=== PATIENT | female | born 1970 | race American Indian/Alaskan Native ===

== ENCOUNTER 2021-07-25 07:49 | Outpatient (CLI) | payer OTHER ==
--- NOTE | 2021-07-26 10:31 | Mammography Report ---
DIGITAL SCREENING MAMMOGRAM WITH CAD, 07/25/2021 CLINICAL INFORMATION / INDICATION: Routine screening mammography. TECHNIQUE: Digital bilateral 2D mammography was obtained in the craniocaudal and mediolateral obliqu e projections. This examination was interpreted with the benefit of Computer-Aided Detection analysis . COMPARISON: None. This is the patient's first mammogram. FINDINGS: Breast Density: There are scattered areas of fibroglandular density. No dominant mass, suspicious calcifications, or architectural distortion in either breast. Postsurgical changes from bilateral breast reduction are noted. IMPRESSION: No mammographic evidence of malignancy. Follow up recommendation: Routine yearly BI-RADS Category 2: Benign. A "normal" or negative report should not discourage follow up or biopsy of a clinically significant f inding. A written summary of these findings will be mailed to the patient. The patient will be entered into a mammography reporting system which will generate a reminder letter for the patient's next appointmen t at the appropriate interval. The [employer] recommends yearly mammograms starting at age 40 and continuing as l lisa as a woman is in good health. Breast MRI is recommended for women with an approximate 20-25% or greater lifetime risk of breast cancer, including women with a strong family history of breast or ova lin cancer or who have been treated for Hodgkin's disease. Signer Name: Adriana Morris MD Signed: 07/26/2021 10:27 AM Workstation Name: [id number]
== END 2021-07-25 07:50 | disposition home or self-care (01) ==
LOC: MAMMO 07:49
DX: Z12.31 Encounter for screening mammogram for malignant neoplasm of breast (principal)
CPT/HCPCS: 77067

== ENCOUNTER 2021-10-26 05:57 | Inpatient (IN) | payer SELFPAY ==
--- NOTE | 2021-10-26 09:20 | Emergency Department Report ---
ED Chest Pain HPI - General Chief Complaint: Dyspnea/Respdistress Stated Complaint: SOB, SWOLLEN ANKLE PUI?: No Time Seen by Provider: 10/26/21 09:08 Source: patient Mode of arrival: Ambulatory Limitations: No Limitations - History of Present Illness Initial Comments: 51-year-old female with a past medical history of hypertension and depression presents to the ER today with complaints of shortness of breath, chest pain and bilateral lower extremity swelling. Patient states that 6 to 7 weeks ago she started noticing that when on exertion she would have substernal chest pain which she described as a tightness sometimes burning and severe shortness of breath. She states that the symptoms did improve with rest. She states that when she became short of breath and started with chest pain she would sometimes get dizzy and diaphoretic but she has not had any nausea or vomiting. She reports that 3 to 4 weeks ago she started having swelling to her bilateral lower extremity including ankle and feet. She states that she has not noticed much improvement of the swelling with elevation of her legs. She denies any calf pain or leg pain with the swelling. She denies any known history of heart disease or kidney disease. She denies any history of DVT or PE. She denies any risk factors for PE or DVT. She states that her dad did suffer from heart disease including having an PA and CHF. 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 MD Complaint: chest pain, other (SOB; LE swelling) -: Gradual, week(s) (6-7 weeks ) - Related Data Previous Rx's Medication Instructions Recorded Last Taken Type Butalb/Acetamin/Caff 50-325-40 1 each PO Q4H PRN #12 tablet 05/24/21 Unknown Rx [Fioricet 50-325-40] Allergies Allergy/AdvReac Type Severity Reaction Status Date / Time No Known Allergies Allergy Unverified 05/24/21 07:09 Heart Score - HEART Score History: Moderately suspicious EKG: Non-specific Age: 45-65 Risk factors: 1-2 risk factors (obesity, HTN, family hx (father)) Troponin: < normal limit HEART Score: 4 - EKG Read Time Time EKG Completed: 10:28 EKG Read Time: 10:24 - Critical Actions Critical Actions: 4-6 pts:12-16.6% risk of adverse cardiac event. Should be admitted ED Review of Systems ROS: Stated complaint: SOB, SWOLLEN ANKLE Other details as noted in HPI Comment: All other systems reviewed and negative Constitutional: denies: chills, fever Eyes: denies: eye pain, eye discharge, vision change ENT: denies: ear pain, throat pain Respiratory: shortness of breath, wheezing. denies: SOB with exertion, SOB at rest Cardiovascular: chest pain, dyspnea on exertion, edema Gastrointestinal: denies: abdominal pain, nausea, diarrhea Genitourinary: denies: urgency, dysuria, discharge Musculoskeletal: joint swelling. denies: back pain, arthralgia Skin: denies: rash, lesions Neurological: denies: headache, weakness, numbness, paresthesias, confusion, abnormal gait, other Psychiatric: denies: anxiety, depression, auditory hallucinations, visual hallucinations, homicidal thoughts, suicidal thoughts Hematological/Lymphatic: denies: easy bleeding, easy bruising ED Past Medical Hx - Past Medical History Hx Hypertension: Yes Hx Psychiatric Treatment: Yes (depression) - Medications Home Medications: Home Medications Medication Instructions Recorded Confirmed Last Taken Type Butalb/Acetamin/Caff 50-325-40 1 each PO Q4H PRN #12 tablet 05/24/21 Unknown Rx [Fioricet 50-325-40] ED Physical Exam - General Limitations: No Limitations General appearance: alert, in no apparent distress, obese - Eye Eye exam: Present: normal appearance, PERRL, EOMI Pupils: Present: normal accommodation - Neck Neck exam: Present: normal inspection, full ROM. Absent: meningismus - Respiratory Respiratory exam: Present: normal lung sounds bilaterally. Absent: respiratory distress, wheezes, rales, rhonchi, stridor - Cardiovascular Cardiovascular Exam: Present: regular rate, normal rhythm, normal heart sounds. Absent: systolic murmur, diastolic murmur - GI/Abdominal GI/Abdominal exam: Present: soft. Absent: tenderness, guarding, rebound - Extremities Exam Extremities exam: Present: full ROM, pedal edema (Moderate nonpitting edema noted to lower legs, ankles and feet). Absent: tenderness, calf tenderness - Neurological Exam Neurological exam: Present: alert, oriented X3, CN II-XII intact, normal gait - Psychiatric Psychiatric exam: Present: normal affect, normal mood ED Course Vital Signs 10/26/21 10/26/21 06:09 13:15 Temperature 98.0 F Pulse Rate 66 64 Respiratory 20 16 Rate Blood Pressure 160/100 Blood Pressure 146/74 [Right] O2 Sat by Pulse 98 100 Oximetry ED Medical Decision Making - Lab Data Result diagrams: 10/26/21 09:26 10/26/21 09:26 - EKG Data EKG shows normal: sinus rhythm Rate: normal (59) No standard instances Welch/QRS: right axis deviation - EKG Data Interpretation: nonspecific ST-T wave lucy - Radiology Data Radiology results: report reviewed Patient: MAXIMILIAN STEINBERG MR#: [id number] : 1970 Acct:[id number] Age/Sex: 51 / F ADM Date: 10/26/21 Loc: ED Attending Dr: Ordering Physician: LY OWUSU Date of Service: 10/26/21 Procedure(s): XR chest routine 2V Accession Number(s): [id number] cc: LY OWUSU Fluoro Time In Minutes: CHEST 2 VIEWS INDICATION: Dyspnea. COMPARISON: none FINDINGS: Support devices: None. Heart: Within normal limits. Lungs/pleura: No acute air space or interstitial disease. No pneumothorax. Additional findings: None. IMPRESSION: No acute findings. Signer Name: Aki Epstein Jr, MD Signed: 10/26/2021 9:51 AM Workstation Name: [id number] Transcribed By: TTR Dictated By: AKI EPSTEIN JR, MD Electronically Authenticated By: AKI EPSTEIN JR, MD Signed Date/Time: 10/26/21950 DD/ 0 TD/TT: Patient: MAXIMILIAN STEINBERG MR#: [id number] : 1970 Acct:[id number] Age/Sex: 51 / F ADM Date: 10/26/21 Loc: ED Attending Dr: Ordering Physician: LY OWUSU Date of Service: 10/26/21 Procedure(s): VL venous duplex LE BILAT Accession Number(s): [id number] cc: LY OWUSU Bilateral lower extremity Doppler venous ultrasound INDICATION: Shortness of breath FINDINGS: Bilateral common femoral veins, superficial femoral veins and popliteal veins have normal compressibility and phasic flow. IMPRESSION: No evidence for DVT. Signer Name: Car Quispe MD Signed: 10/26/2021 10:32 AM Workstation Name: [id number] Transcribed By: LORAINE Dictated By: NAKITA QUISPE MD Electronically Authenticated By: NAKITA QUISPE MD Signed Date/Time: 10/26/211031 DD/ 31 TD/TT: Patient: MAXIMILIAN STEINBERG MR#: [id number] : 1970 Acct:[id number] Age/Sex: 51 / F ADM Date: 10/26/21 Loc: ED Attending Dr: Ordering Physician: LY OWUSU Date of Service: 10/26/21 Procedure(s): CT angio chest Accession Number(s): [id number] cc: LY OWUSU CTA CHEST WITH IV CONTRAST INDICATION: SOB/elevated d-dimer. Chest pain TECHNIQUE: Axial CT images were obtained through the chest after injection of 100 mL Omnipaque 350 IV contrast. 3 plane MIP reconstructions were produced. All CT scans at this location are performed u sing CT dose reduction for [facility] by means of automated exposure control. COMPARISON: None available. FINDINGS: PULMONARY ARTERIES: No pulmonary emboli. AORTA AND ARTERIES: No acute abnormality. MEDIASTINUM: Mild bilateral adenopathy involving both karely.. LUNGS: No suspicious consolidation, nodule or mass. No pneumothorax or pleural effusion. ADDITIONAL FINDINGS: None. UPPER ABDOMEN: No acute findings. BONES: No significant osseous abnormality. IMPRESSION: 1. No CT evidence for pulmonary embolism. 2. Mild bilateral hilar adenopathy. Signer Name: Manjeet Montez MD Signed: 10/26/2021 11:14 AM Workstation Name: [id number] Transcribed By: BC Dictated By: Manjeet Montez MD Electronically Authenticated By: Manjeet Montez MD Signed Date/Time: 10/26/214 DD/ 11 TD/TT: - Medical Decision Making Work up reviewed --chest x-ray shows no acute abnormalities. Troponin x2 normal. CBC and CMP unremarkable. BNP is normal. EKG shows no nonspecific T wave changes but STEMI or significant dysrhythmias. Her venous Dopplers were negative for DVT. CTA chest was normal without evidence of PE. Case was disc ussed with Dr. Aditya Herzog. Given patient history, and her risk factors, heart score 4 concerns for unstable angina patient will be admitted to the hospital for further cardiac work-up. Dr. Aditya Herzog discussed case with Dr. Rivera, hospitalist for admission. Patient currently sitting comfortably on the recliner. She is not currently in any acute pain or respiratory distress. Repeat vital signs are stable. Discussed all results with patient. Discussed the concerns and reason for admission with patient. Patient expressed understanding agree with plan. Patient was stable at time of discharge per Critical care attestation.: If time is entered above; I have spent that time in minutes in the direct care of this critically ill patient, excluding procedure time. ED Disposition Clinical Impression: Unstable angina, Dyspnea, Peripheral edema Disposition: ADMITTED INPATIENT Is pt being admited?: Yes Condition: Stable Referrals: PRIMARY CARE, [Primary Care Provider] - 3-5 Days
[2021-10-26 09:43] LABS: Basophils % (Auto) 0.8 % (0.0-1.8); Eosinophils # (Auto) 0.1 K/mm3 (0.0-0.4); Eosinophils % (Auto) 1.7 % (0.0-4.3); Hematocrit 36.5 % (30.3-42.9); Hemoglobin 11.4 gm/dl (10.1-14.3); Lymphocytes # (Auto) 1.6 K/mm3 (1.2-5.4); Lymphocytes % (Auto) 29.9 % (13.4-35.0); Mean Corpuscular HGB Conc 31 % (30-34); Mean Corpuscular Volume 85 fl (79-97); Monocytes # (Auto) 0.5 K/mm3 (0.0-0.8); Monocytes % (Auto) 8.3 % (0.0-7.3); Platelet Count 284 K/mm3 (140-440); Red Cell Distribution Width 17.2 % (13.2-15.2)
--- NOTE | 2021-10-26 09:56 | XRay Report ---
CHEST 2 VIEWS INDICATION: Dyspnea. COMPARISON: none FINDINGS: Support devices: None. Heart: Within normal limits. Lungs/pleura: No acute air space or interstitial disease. No pneumothorax. Additional findings: None. IMPRESSION: No acute findings. Signer Name: Aki Epstein Jr, MD Signed: 10/26/2021 9:51 AM Workstation Name: [id number]
[2021-10-26 10:11] LABS: Alanine Aminotransferase 14 units/L (7-56); Albumin 4.4 g/dL (3.9-5); Blood Urea Nitrogen 14 mg/dL (7-17); Calcium 9.5 mg/dL (8.4-10.2); Hemolysis Index 5
[2021-10-26 10:18] LABS: BUN/Creatinine Ratio 20
--- NOTE | 2021-10-26 10:37 | Vascular Lab Report ---
Bilateral lower extremity Doppler venous ultrasound INDICATION: Shortness of breath FINDINGS: Bilateral common femoral veins, superficial femoral veins and popliteal veins have normal c ompressibility and phasic flow. IMPRESSION: No evidence for DVT. Signer Name: Car Quispe MD Signed: 10/26/2021 10:32 AM Workstation Name: [id number]
--- NOTE | 2021-10-26 11:19 | Cat Scan Report ---
CTA CHEST WITH IV CONTRAST INDICATION: SOB/elevated d-dimer. Chest pain TECHNIQUE: Axial CT images were obtained through the chest after injection of 100 mL Omnipaque 350 IV contrast. 3 plane MIP reconstructions were produced. All CT scans at this location are performed using CT dose reduction for [facility] by means of automated exposure control. COMPARISON: None available. FINDINGS: PULMONARY ARTERIES: No pulmonary emboli. AORTA AND ARTERIES: No acute abnormality. MEDIASTINUM: Mild bilateral adenopathy involving both karely.. LUNGS: No suspicious consolidation, nodule or mass. No pneumothorax or pleural effusion. ADDITIONAL FINDINGS: None. UPPER ABDOMEN: No acute findings. BONES: No significant osseous abnormality. IMPRESSION: 1. No CT evidence for pulmonary embolism. 2. Mild bilateral hilar adenopathy. Signer Name: Manjeet Montez MD Signed: 10/26/2021 11:14 AM Workstation Name: [id number]
[2021-10-26] MEDS ORDERED: ACETAMINOPHEN 325 MG TAB PO PRN (16:11)
[2021-10-26] MEDS ORDERED: ONDANSETRON 4 MG/2 ML INJ IV PRN (16:11)
[2021-10-26] MEDS ORDERED: oxyCODONE /ACETAMINOPHEN 5-325MG TAB PO PRN (16:11)
[2021-10-26] MEDS ORDERED: HYDROmorphone 1 MG/1 ML INJ IV PRN (16:11)
--- NOTE | 2021-10-26 16:30 | History and Physical Report ---
History of Present Illness Date of examination: 10/26/21 Date of admission: October 26 2021 Chief complaint: Shortness of breath on minimal exertion for 1 week History of present illness: 51-year-old female with past medical history of hypertension and depression com es in for increasing shortness of breath, chest pain and bilateral lower extremity swelling for 1 week. Patient noticed exertion on dyspnea about 6 weeks ago. Patient stated she is compliant with her blood pressure medications. Did not seek any medical attention because of her problems with insurance. Patient is orthopneic. No paroxysmal nocturnal dyspnea. Chest pain is intermittent. About 5 on a scale of 1-10. Precipitated by exertion. No diaphoresis. No radiation of the chest pain. No nausea or vomiting. Patient also noticed bilateral lower extremity swelling including ankle and feet. Heart Score - HEART Score History: Moderately suspicious EKG: Non-specific Age: 45-65 Risk factors: 1-2 risk factors (obesity, HTN, family hx (father)) Troponin: < normal limit HEART Score: 4 - EKG Read Time Time EKG Completed: 10:28 EKG Read Time: 10:24 - Critical Actions Critical Actions: 4-6 pts:12-16.6% risk of adverse cardiac event. Should be admitted - Past Medical History --Hypertension: Yes --Psychiatric Treatment: Yes (depression) -Past surgical history none -Family history --CHF -Social history -- no smoking or alcohol - Medications Home Medications: Home Medications Medication Instructions Recorded Confirmed Last Taken Type Butalb/Acetamin/Caff 50-325-40 1 each PO Q4H PRN #12 tablet 05/24/21 Unknown Rx [Fioricet 50-325-40] Review of Systems ROS: Stated complaint: SOB, SWOLLEN ANKLE Other details as noted in HPI Comment: All other systems reviewed and negative Constitutional: denies: chills, fever Eyes: denies: eye pain, eye discharge, vision change ENT: denies: ear pain, throat pain Respiratory: shortness of breath, wheezing. denies: SOB with exertion, SOB at rest Cardiovascular: chest pain, dyspnea on exertion, edema Gastrointestinal: denies: abdominal pain, nausea, diarrhea Genitourinary: denies: urgency, dysuria, discharge Musculoskeletal: joint swelling. denies: back pain, arthralgia Skin: denies: rash, lesions Neurological: denies: headache, weakness, numbness, paresthesias, confusion, abnormal gait, other Psychiatric: denies: anxiety, depression, auditory hallucinations, visual hallucinations, homicidal thoughts, suicidal thoughts Hematological/Lymphatic: denies: easy bleeding, easy bruising Medications and Allergies Allergies Allergy/AdvReac Type Severity Reaction Status Date / Time No Known Allergies Allergy Verified 10/26/21 17:53 Home Medications Medication Instructions Recorded Confirmed Last Taken Type Butalb/Acetamin/Caff 50-325-40 1 each PO Q4H PRN #12 tablet 05/24/21 Unknown Rx [Fioricet 50-325-40] Exam - Constitutional Vitals: Temp Pulse Resp BP Pulse Ox 98.0 F 64 16 146/74 100 10/26/21 06:09 10/26/21 13:15 10/26/21 13:15 10/26/21 13:15 10/26/21 13:15 General appearance: Present: mild distress, well-nourished - EENT Eyes: Present: PERRL ENT: hearing intact, clear oral mucosa - Neck Neck: Present: supple, normal ROM - Respiratory Respiratory effort: normal Respiratory: bilateral: CTA - Cardiovascular Heart rate: 106 Rhythm: regular Heart Sounds: Present: S1 & S2. Absent: rub, click - Extremities Extremities: pulses symmetrical, No edema (3+ pedal edema) Peripheral Pulses: within normal limits - Abdominal General gastrointestinal: Present: soft, non-tender, non-distended, normal bowel sounds Female genitourinary: Present: normal - Integumentary Integumentary: Present: clear, warm, dry - Musculoskeletal Musculoskeletal: gait normal, strength equal bilaterally - Psychiatric Psychiatric: appropriate mood/affect, intact judgment & insight - Neurologic Neurologic: CNII-XII intact, moves all extremities - Allied Health Allied health notes reviewed: nursing, case management HEART Score - HEART Score EKG: Non-specific Age: 45-65 Risk factors: 1-2 risk factors (obesity, HTN, family hx (father)) Troponin: Troponin T < 0.010 ng/mL (0.00-0.029) 10/26/21 12:38 Troponin: < normal limit - Critical Actions Critical Actions: 4-6 pts:12-16.6% risk of adverse cardiac event. Should be admitted Results - Labs CBC & Chem 7: 10/26/21 09:26 10/27/21 05:48 Labs: Laboratory Last Values WBC 5.4 K/mm3 (4.5-11.0) 10/26/21 09:26 RBC 4.30 M/mm3 (3.65-5.03) 10/26/21 09:26 Hgb 11.4 gm/dl (10.1-14.3) 10/26/21 09:26 Hct 36.5 % (30.3-42.9) 10/26/21 09: MCV 85 fl (79-97) 10/26/21 09:26 MCH 27 pg (28-32) L 10/26/21 09: MCHC 31 % (30-34) 10/26/21 09: RDW 17.2 % (13.2-15.2) H 10/26/21 09:26 Plt Count 284 K/mm3 (140-440) 10/26/21 09:26 Lymph % (Auto) 29.9 % (13.4-35.0) 10/26/21 09:26 Tyler % (Auto) 8.3 % (0.0-7.3) H 10/26/21 09:26 Eos % (Auto) 1.7 % (0.0-4.3) 10/26/21 09:26 Baso % (Auto) 0.8 % (0.0-1.8) 10/26/21 09:26 Lymph # (Auto) 1.6 K/mm3 (1.2-5.4) 10/26/21 09:26 Tyler # (Auto) 0.5 K/mm3 (0.0-0.8) 10/26/21 09:26 Eos # (Auto) 0.1 K/mm3 (0.0-0.4) 10/26/21 09:26 Baso # (Auto) 0.0 K/mm3 (0.0-0.1) 10/26/21 09: Seg Neutrophils % 59.3 % (40.0-70.0) 10/26/21 09: Seg Neutrophils # 3.2 K/mm3 (1.8-7.7) 10/26/21 09:26 D-Dimer 241.42 ng/mlDDU (0-234) H 10/26/21 09:26 Sodium 142 mmol/L (137-145) 10/26/21 09:26 Potassium 3.9 mmol/L (3.6-5.0) 10/26/21 09:26 Chloride 107.7 mmol/L (98-107) H 10/26/21 09:26 Carbon Dioxide 23 mmol/L (22-30) 10/26/21 09:26 Anion Gap 15 mmol/L 10/26/21 09:26 BUN 14 mg/dL (7-17) 10/26/21 09:26 Creatinine 0.7 mg/dL (0.6-1.2) 10/26/21 09:26 Estimated GFR > 60 ml/min 10/26/21 09:26 BUN/Creatinine Ratio 20 % 10/26/21 09:26 Glucose 98 mg/dL (65-100) 10/26/21 09:26 Calcium 9.5 mg/dL (8.4-10.2) 10/26/21 09:26 Total Bilirubin 0.20 mg/dL (0.1-1.2) 10/26/21 09:26 AST 17 units/L (5-40) 10/26/21 09:26 ALT 14 units/L (7-56) 10/26/21 09:26 Alkaline Phosphatase 67 units/L (35-129) 10/26/21 09:26 Troponin T < 0.010 ng/mL (0.00-0.029) 10/26/21 12:38 NT-Pro-B Natriuret Pep 87.09 pg/mL (0-900) 10/26/21 09:26 Total Protein 7.3 g/dL (6.3-8.2) 10/26/21 09:26 Albumin 4.4 g/dL (3.9-5) 10/26/21 09:26 Albumin/Globulin Ratio 1.5 % 10/26/21 09:26 - Imaging and Cardiology EKG: report reviewed (Sinus rhythm no acute ST-T wave changes) Assessment and Plan Advance Directives: Yes (Full code) VTE prophylaxis?: Chemical Plan of care discussed with patient/family: Yes - Patient Problems (1) Acute exacerbation of CHF (congestive heart failure) Current Visit: Yes Status: Acute Qualifiers: Heart failure type: combined systolic and diastolic Qualified Code(s): I50.43 - Acute on chronic combined systolic (congestive) and diastolic (congestive) heart failure Plan to address problem: Patient initiated on IV Lasix and potassium Echocardiogram for ejection fraction Strict I and O's Daily weights Control blood pressure (2) Acute coronary syndrome Current Visit: Yes Status: Acute Plan to address problem: Serial troponins and Lexiscan in the morning (3) Hypertension Current Visit: Yes Status: Chronic Qualifiers: Hypertension type: primary hypertension Qualified Code(s): I10 - Essential (primary) hypertension Plan to address problem: Continue antihypertensives and adjust medications (4) Peripheral edema Current Visit: Yes Status: Acute Plan to address problem: IV Lasix for now (5) DVT prophylaxis Current Visit: Yes Status: Acute Plan to address problem: On heparin and GI prophylaxis (6) Advance care planning Current Visit: Yes Status: Acute Plan to address problem: Disease education conducted, care plan discussed, diagnosis discussed, prognosis discussed. Patient is full code. Patient acknowledges understanding and agreement with care plan. +30 minutes.
[2021-10-26] MEDS ORDERED: ENOXAPARIN 40 MG/0.4 ML INJ SUB-Q SCH (17:00)
[2021-10-27 06:41] LABS: Alanine Aminotransferase 11 units/L (7-56); Albumin 3.8 g/dL (3.9-5); Blood Urea Nitrogen 10 mg/dL (7-17); Calcium 8.7 mg/dL (8.4-10.2); Hemolysis Index 2
[2021-10-27 06:42] LABS: BUN/Creatinine Ratio 14
[2021-10-27] MEDS ORDERED: ONDANSETRON 4 MG/2 ML INJ IV PRN (08:00)
[2021-10-27] MEDS ORDERED: ACETAMINOPHEN 325 MG TAB PO PRN (08:00)
[2021-10-27] MEDS ORDERED: REGADENOSON 0.4 MG/5 ML INJ IV ONE (08:54)
[2021-10-27] MEDS ORDERED: LOSARTAN 50 MG TAB PO SCH (10:00)
[2021-10-27] MEDS ORDERED: carvediloL 3.125 MG TAB PO SCH (10:00)
[2021-10-27] MEDS ORDERED: LOSARTAN 25 MG TAB PO SCH (10:00)
--- NOTE | 2021-10-27 11:24 | Electrocardiograph Report ---
[facility] Test Date: 2021-10-26 Test Time: 10:28:08 Pat Name: MAXIMILIAN STEINBERG Department: Room: A465 Gender: F Filling Technician: CONTRERAS : 1970 Requested By: LY OWUSU Order Number: [id number] Reading MD: Braeden Álvarez Measurements Intervals [place] Rate: 59 P: 121 MT: 139 QRS: 163 QRSD: 81 T: 119 QT: 434 QTc: 431 Interpretive Statements Right and left arm electrode reversal, interpretation assumes no reversal Sinus rhythm Right axis deviation Nonspecific T abnrm, anterolateral leads No previous ECG available for comparison Electronically Signed On 10-27-2021 11:24:25 EDT by Braeden Álvarez
[2021-10-27] MEDS: FUROSEMIDE 40 MG/4 ML INJ IV SCH ×3 (12:28→17:32)
[2021-10-27] MEDS: POTASSIUM CHLORIDE ER 20 MEQ TAB PO SCH ×2 (12:31→17:29)
--- NOTE | 2021-10-27 14:55 | Consultation ---
History of Present Illness Consult date: 10/27/21 Requesting physician: CHIP COFFEY Consult reason: congestive heart failure History of present illness: Is a 51-year-old female with a past medical history of hypertension and depression who presented to the ED for complaint of shortness of breath, chest pain and bilateral lower extremity edema for 3 to 4 days. Patient reports the symptoms have been going on for several weeks but however she feels they have worsened over the last several days. She states her shortness of breath is worsened with exertion. She states she has had some burning chest pain at times. Patient denies any nausea, vomiting, diaphoresis, orthopnea, PND. Patient is previously unknown to our practice. Cardiology is consulted for CHF Past History Past Medical History: hypertension, other (Depression) Past Surgical History: No surgical history Social history: no significant social history Family history: hypertension, other (Heart failure) Medications and Allergies Allergies Allergy/AdvReac Type Severity Reaction Status Date / Time No Known Allergies Allergy Verified 10/26/21 17:53 Home Medications Medication Instructions Recorded Confirmed Last Taken Type Butalb/Acetamin/Caff 50-325-40 1 each PO Q4H PRN #12 tablet 05/24/21 Unknown Rx [Fioricet 50-325-40] Active Meds: Active Medications Acetaminophen (Acetaminophen 325 Mg Tab) 650 mg PO Q4H PRN PRN Reason: Pain MILD(1-3)/Fever >100.5/HOOD Carvedilol (Carvedilol 3.125 Mg Tab) 3.125 mg PO BID [facility] Last Admin: 10/27/21 12:30 Dose: 3.125 mg Enoxaparin Sodium (Enoxaparin 40 Mg/0.4 Ml Inj) 40 mg SUB-Q QDAY [facility] Furosemide (Furosemide 40 Mg/4 Ml Inj) 40 mg IV 0600,1800 [facility] Last Admin: 10/27/21 12:32 Dose: 40 mg Hydromorphone HCl (Hydromorphone 1 Mg/1 Ml Inj) 0.5 mg IV Q3H PRN PRN Reason: Pain , Severe (7-10) Losartan Potassium (Losartan 25 Mg Tab) 25 mg PO QDAY [facility] Last Admin: 10/27/21 12:32 Dose: 25 mg Ondansetron HCl (Ondansetron 4 Mg/2 Ml Inj) 4 mg IV Q8H PRN PRN Reason: Nausea And Vomiting Oxycodone/Acetaminophen (Oxycodone /Acetaminophen 5-325mg Tab) 1 tab PO Q6H PRN PRN Reason: Pain, Moderate (4-6) Potassium Chloride (Potassium Chloride Er 20 Meq Tab) 20 meq PO Q12H [facility] Last Admin: 10/27/21 12:31 Dose: 20 meq Sodium Chloride (Sodium Chloride 0.9% 10 Ml Flush Syringe) 10 ml IV BID [facility] Sodium Chloride (Sodium Chloride 0.9% 10 Ml Flush Syringe) 10 ml IV PRN PRN PRN Reason: LINE FLUSH Sodium Chloride (Sodium Chloride 0.9% 10 Ml Flush Syringe) 10 ml IV BID [facility] Sodium Chloride (Sodium Chloride 0.9% 10 Ml Flush Syringe) 10 ml IV PRN PRN PRN Reason: LINE FLUSH Review of Systems Constitutional: no weight loss, no weight gain, no fever, no chills Cardiovascular: chest pain, shortness of breath, no orthopnea, no palpitations, no syncope Respiratory: shortness of breath, dyspnea on exertion Gastrointestinal: no abdominal pain, no nausea, no vomiting Musculoskeletal: no shooting arm pain, no arm numbness/tingling, no low back pain Integumentary: no rash, no pruritis, no redness Neurological: no head injury, no transient paralysis Psychiatric: no anxiety, no memory loss Endocrine: no cold intolerance, no heat intolerance Hematologic/Lymphatic: no easy bruising, no easy bleeding Physical Examination Vital Signs Temp Pulse Resp BP Pulse Ox 98.0 F 66 20 160/100 98 10/26/21 06:09 10/26/21 06:09 10/26/21 06:09 10/26/21 06:09 10/26/21 06:09 General appearance: no acute distress HEENT: Positive: PERRL Neck: Positive: trachea midline Cardiac: Positive: Reg Rate and Rhythm Lungs: Positive: Normal Breath Sounds Neuro: Positive: Grossly Intact Abdomen: Positive: Soft, Active Bowel Sounds Skin: Negative: Rash, Suspicious Lesions, Ulceration Extremities: Present: upper extr. pulses. Absent: edema Results 10/26/21 09:26 10/27/21 05:48 Cardiac Enzymes 10/27/21 Range/Units 05:48 AST 15 (5-40) units/L Comprehensive Metabolic Panel 10/27/21 Range/Units 05:48 Sodium 140 (137-145) mmol/L Potassium 3.7 (3.6-5.0) mmol/L Chloride 105.9 (98-107) mmol/L Carbon Dioxide 24 (22-30) mmol/L BUN 10 (7-17) mg/dL Creatinine 0.7 (0.6-1.2) mg/dL Glucose 94 (65-100) mg/dL Calcium 8.7 (8.4-10.2) mg/dL AST 15 (5-40) units/L ALT 11 (7-56) units/L Alkaline Phosphatase 60 (35-129) units/L Total Protein 6.4 (6.3-8.2) g/dL Albumin 3.8 L (3.9-5) g/dL - Imaging and Cardiology Echo: report reviewed EKG interpretations - Telemetry EKG Rhythm: Sinus Rhythm - EKG Sinus rhythms and dysrhythmias: sinus rhythm Repolarization changes or abnormalities: nonspecific abnormality, ST segment, and/or T wave Assessment and Plan Is a 51-year-old female with a past medical history of hypertension and depression who presented to the ED for complaint of shortness of breath, chest pain and bilateral lower extremity edema for 3 to 4 days Atypical chest pain Hypertension Shortness of breath History of depression Lexiscan MPI stress test 10/27/2021-stress test is negative for signs of ischemia Echo 10/27/2021-EF 55 to 60%. Right ventricular systolic function is normal. Doppler flow pattern suggests impaired LV relaxation left and right atrium are normal in size. No pericardial effusion Plan: EKG has right and left arm electrode reversal. Interpretation assumes no reversal. EKG shows sinus rhythm 59 nonspecific T abnormalities. Right axis deviation. No acute ischemic changes. Troponins negative x4. Patient currently chest pain-free. AMI ruled out BNP is negative, CXR, and CT chest shows no acute findings. Furthermore patient appears euvolemic on exam. Patient is not clinically in heart failure Patient had normal echo and normal stress test. Results noted above Cardiac status stable for discharge Patient should follow-up with their primary care provider 1 to 2 weeks after discharge Patient seen in conjunction with Dr. Álvarez who agrees with this plan of care - Patient Problems (1) Depression Current Visit: Yes Status: Acute (2) Atypical chest pain Current Visit: Yes Status: Acute (3) Hypertension Current Visit: Yes Status: Chronic Qualifiers: Hypertension type: primary hypertension Qualified Code(s): I10 - Essential (primary) hypertension
--- NOTE | 2021-10-27 16:18 | Discharge Summary ---
Providers - Providers Date of Admission: 10/26/21 16:11 Date of discharge: 10/27/21 Attending physician: BUFFY MONCADA 10/27/21 07:16 Consult to Physician [CONS] Routine Comment: Consulting Provider: FRANCISCA GRAY Physician Instructions: Reason For Exam: CHF exacerbation Primary care physician: ARCHITECTURAL TECHNOLOGIST Hospitalization Condition: Stable Hospital course: (1) Acute exacerbation of CHF (congestive heart failure) Patient initiated on IV Lasix and potassium Echocardiogram for ejection fraction Strict I and O's Daily weights Control blood pressure (2) Acute coronary syndrome Current Visit: Yes Status: Acute Plan to address problem: Serial troponins and Lexiscan in the morning (3) Hypertension Current Visit: Yes Status: Chronic Qualifiers: Hypertension type: primary hypertension Qualified Code(s): I10 - Essential (primary) hypertension Plan to address problem: Continue antihypertensives and adjust medications (4) Peripheral edema Current Visit: Yes Status: Acute Plan to address problem: IV Lasix for now (5) DVT prophylaxis Current Visit: Yes Status: Acute Plan to address problem: On heparin and GI prophylaxis (6) Advance care planning Current Visit: Yes Status: Acute Plan to address problem: Disease education conducted, care plan discussed, diagnosis discussed, prognosis discussed. Patient is full code. Patient acknowledges understanding and agreement with care plan. +30 minutes. Disposition: 30 STILL A PATIENT Core Measure Documentation - Palliative Care Palliative Care/ Comfort Measures: Not Applicable - Core Measures Any of the following diagnoses?: none Exam - Constitutional Vitals: Temp Pulse Resp BP Pulse Ox 98.8 F 67 18 151/90 99 10/27/21 12:29 10/27/21 12:32 10/27/21 12:28 10/27/21 12:32 10/27/21 12:28 General appearance: Present: no acute distress, well-nourished - EENT Eyes: Present: PERRL, EOM intact - Neck Neck: Present: supple, normal ROM - Respiratory Respiratory effort: normal Respiratory: bilateral: diminished, negative: rales, rhonchi, wheezing - Cardiovascular Rhythm: regular Heart Sounds: Present: S1 & S2 - Extremities Extremities: no ischemia, No edema - Abdominal General gastrointestinal: Present: soft, non-tender, non-distended, normal bowel sounds - Integumentary Integumentary: Present: clear, warm - Musculoskeletal Musculoskeletal: strength equal bilaterally, generalized weakness - Psychiatric Psychiatric: appropriate mood/affect, cooperative Plan Activity: advance as tolerated Diet: low salt, other (Cardiac diet) Additional Instructions: Strongly advised to comply with medications diet and follow-up visits. Advised low-sodium diet and fluid restriction. If you have worsening symptoms contact MD or go to the nearest emergency room. Advised dietary modification, exercise as tolerated and weight reduction when you are medically stable. Advised to follow with primary care physician 1 week Follow up with: PRIMARY CARE, [Primary Care Provider] - 3-5 Days Prescriptions: carvediloL [Coreg] 3.125 mg PO BID #60 tablet Losartan [Cozaar] 25 mg PO QDAY #30 tablet Potassium Chloride [K-Dur] 20 meq PO DAILY #30 tablet Furosemide [Lasix TAB] 40 mg PO BID #60 tablet
[2021-10-27 19:06] VITALS: BP 135/63
--- NOTE | 2021-10-27 22:29 | Treadmill Report ---
DATE OF SERVICE: 10/27/2021 NUCLEAR STRESS TEST REFERRING PHYSICIAN: Hospitalist. PROTOCOL: The patient was assessed in postoperative state, given 10 mCi of technetium at rest. The patient had rest imaging. The patient underwent Lexiscan stress test per standard protocol. At peak stress, the patient given 26 mCi technetium shortly after stress imaging. Raw imaging revealed mild GI artifact, no significant motion artifact. SPECT imaging examined carefully in the horizontal long axis, vertical long axis, short axis views. There was no significant fixed or reversible perfusion defect suggestive of prior infarction or active ischemia. Gated wall motion reveals normal systolic thickening, calculated ejection fraction 64%. CONCLUSIONS: 1. Normal myocardial perfusion scan without evidence of active ischemia or prior infarction. 2. Normal left ventricular systolic performance without evidence of transient ischemic dilatation or stress-induced segmental wall motion abnormalities. TID: [id number] RECEIPT: [id number] JESSICA/RASHAWN
== END 2021-10-27 19:40 | disposition home or self-care (01) | DRG 291 ==
LOC: ED 05:57 → 4A 16:11
PROVIDERS: ADMIT Internal Medicine; ATTEND Internal Medicine
DX: I11.0 Hypertensive heart disease with heart failure (principal); I50.43 Acute on chronic combined systolic (congestive) and diastolic (congestive) heart failure; Z79.01 Long term (current) use of anticoagulants; F32.9 Major depressive disorder, single episode, unspecified; Z82.49 Family history of ischemic heart disease and other diseases of the circulatory system
CPT/HCPCS: 36415; 71046; 71275; 78452; 80053; 83880; 84484; 85025; 85379; 93005; 93017; 93306; 93970; G0378; A9502; C8929; J1650; J1940; J2785; Q9967